=== PATIENT | male | born 1980 | race African-American/Black ===

== ENCOUNTER 2019-07-20 08:23 | Emergency (ER) | payer BC ==
[~2019-07-20] VITALS: Ht 182.9 cm; Wt 120.0 kg
[~2019-07-20 08:23] MED LIST: COZAAR50 MG PO; KEFLEX500 MG OR; LEVEMIR SC; METFORMIN1000 MG PO; NO HOME MEDS; PERCOCET 5/325M1 TAB OR
[2019-07-20] MEDS ORDERED: PREVACID15 M3 PO (09:12)
[2019-07-20 09:28] LABS: HEMOGLOBIN 16.3 g/dl (14.0-18.0); IMMATURE GRANULOCYTES 0.3 % (0.0-5.0); MEAN CELL VOLUME 87.2 fL CALC (80.0-100.0); MEAN CORPUSCULAR HGB 29.1 pG CALC (26.0-32.0); MEAN CORPUSCULAR HGB CONC 33.3 g/L CALC (32.0-36.0); NEUT# 4.29 thou/uL (1.82-7.42); RED BLOOD COUNT 5.61 mill/uL (4.70-6.10); RED CELL DISTRI WIDTH 15.2 % (11.5-15.5)
[2019-07-20 09:29] LABS: HEMATOCRIT 48.9 % (39.0-50.0)
[2019-07-20] MEDS ORDERED: ZINC50 MG PO (09:31)
[2019-07-20] MEDS ORDERED: [UNRECOGNIZED DRUG - OTHER] PO (09:44)
[2019-07-20] MEDS ORDERED: D3 DOTS2000 UNIT PO (09:45)
[2019-07-20] MEDS ORDERED: LISINOP/HCTZ1 TA2 PO (09:46)
[2019-07-20 09:50] LABS: URINE BILIRUBIN - DIPSTICK NEGATIVE (NEGATIVE); URINE BLOOD DIPSTICK NEGATIVE (NEGATIVE); URINE COLOR YELLOW; URINE GLUCOSE - DIPSTICK NEGATIVE (NEGATIVE); URINE KETONE NEGATIVE (NEGATIVE); URINE LEUK ESTERASE NEGATIVE (NEGATIVE); URINE NITRITE - DIPSTICK NEGATIVE (Negative); URINE PROTEIN - DIPSTICK NEGATIVE (NEG-TRACE); URINE SPECIFIC GRAVITY >=1.030
[2019-07-20 09:52] LABS: BARBITURATES NEGATIVE (NEGATIVE); COCAINE NEGATIVE (NEGATIVE); METHADONE NEGATIVE (NEGATIVE); OXCYCODONE NEGATIVE (NEGATIVE); TETRAHYDROCANNABIONOL NEGATIVE (NEGATIVE); TRICYLIC ANTIDEPRESSANTS NEGATIVE (NEGATIVE)
[2019-07-20 09:54] LABS: ALBUMIN 4.4 g/dL (3.2-5.0); ALKALINE PHOSPHATASE 81 u/l (38-126); AMYLASE 74 u/l (30-110); ANION GAP 15 (6-22 (CALC)); BUN 15 mg/dL (9-20); BUN/CREATININE RATIO 18 (12-20 (CALC)); CARBON DIOXIDE 25 mmol/l (22-30); CHLORIDE 99 mmol/l (95-108); CREATININE 0.9 mg/dL (0.7-1.3); GFR > 60 ML/MIN (>=60 (CALC)); GFR FOR AFR.AMER. > 60 ML/MIN (>=60 (CALC)); LIPASE 154 u/l (23-300); POTASSIUM 4.2 mmol/l (3.5-5.1); SODIUM 134 mmol/l (137-146); TOTAL PROTEIN 8.5 g/dL (6.3-8.2)
[2019-07-20 09:59] LABS: BILIRUBIN, TOTAL 1.1 mg/dL (0.0-1.4); SGOT/AST 73 u/l (17-59)
[2019-07-20 10:06] LABS: MYOGLOBIN 57 ng/mL (0 - 121)
[2019-07-20] MEDS ORDERED: ONDANSETRON4 MG PO (11:09)
[2019-07-20] MEDS ORDERED: PREVACID30 M3 PO (11:09)
[2019-07-20 11:28] VITALS: BP 128/73
== END 2019-07-20 11:49 | disposition home or self-care (01) | DRG 440 ==
LOC: ED 08:23
PROVIDERS: Emergency Medicine
DX: K85.90 Acute pancreatitis without necrosis or infection, unspecified (principal); I10 Essential (primary) hypertension; F17.210 Nicotine dependence, cigarettes, uncomplicated
CPT/HCPCS: Q9967; S0164

== ENCOUNTER 2019-07-23 15:15 | Inpatient (IN) | payer BC ==
[~2019-07-23] VITALS: Ht 182.9 cm; Wt 129.0 kg
[~2019-07-23 15:15] MED LIST changes: +D3 DOTS2000 UNIT PO; +LISINOP/HCTZ1 TA2 PO; +ONDANSETRON4 MG PO; +PREVACID15 M3 PO; +PREVACID30 M3 PO; +ZINC50 MG PO; +[UNRECOGNIZED DRUG - OTHER] PO
--- NOTE | 2019-07-23 15:37 | NUR ---
TO ROOM WITH STEADY GAIT
[2019-07-23 16:06] LABS: HEMATOCRIT 48.5 % (39.0-50.0); HEMOGLOBIN 15.6 g/dl (14.0-18.0); IMMATURE GRANULOCYTES 0.3 % (0.0-5.0); MEAN CELL VOLUME 89.2 fL CALC (80.0-100.0); MEAN CORPUSCULAR HGB 28.7 pG CALC (26.0-32.0); MEAN CORPUSCULAR HGB CONC 32.2 g/L CALC (32.0-36.0); NEUT# 3.46 thou/uL (1.82-7.42); RED BLOOD COUNT 5.44 mill/uL (4.70-6.10); RED CELL DISTRI WIDTH 15.2 % (11.5-15.5)
--- NOTE | 2019-07-23 16:20 | NUR ---
PATIENT REPORTS LUQ ABD PAIN X1 WEEK, DENIES ANY VOMITING OR DIARRHEA. HAS FOLLOW UP APPOINTMENT WITH PCP AND LAB WORK DRAWN. SENT TO ED FOR ABNORMAL LABS.
[2019-07-23 16:29] LABS: ALBUMIN 4.4 g/dL (3.2-5.0); ALKALINE PHOSPHATASE 71 u/l (38-126); AMYLASE 129 u/l (30-110); ANION GAP 17 (6-22 (CALC)); BUN 17 mg/dL (9-20); BUN/CREATININE RATIO 15 (12-20 (CALC)); CARBON DIOXIDE 25 mmol/l (22-30); CHLORIDE 100 mmol/l (95-108); CREATININE 1.1 mg/dL (0.7-1.3); GFR > 60 ML/MIN (>=60 (CALC)); GFR FOR AFR.AMER. > 60 ML/MIN (>=60 (CALC)); LIPASE 1419 u/l (23-300); POTASSIUM 4.3 mmol/l (3.5-5.1); SGOT/AST 28 u/l (17-59); SODIUM 138 mmol/l (137-146); TOTAL PROTEIN 8.2 g/dL (6.3-8.2)
[2019-07-23 16:30] LABS: BILIRUBIN, TOTAL 0.4 mg/dL (0.0-1.4)
[2019-07-23 16:43] LABS: URINE BILIRUBIN - DIPSTICK NEGATIVE (NEGATIVE); URINE BLOOD DIPSTICK TRACE-INTACT (NEGATIVE); URINE COLOR YELLOW; URINE GLUCOSE - DIPSTICK NEGATIVE (NEGATIVE); URINE KETONE NEGATIVE (NEGATIVE); URINE LEUK ESTERASE NEGATIVE (NEGATIVE); URINE NITRITE - DIPSTICK NEGATIVE (Negative); URINE PH 5.5 (4.5-8.0); URINE PROTEIN - DIPSTICK NEGATIVE (NEG-TRACE)
--- NOTE | 2019-07-23 17:19 | NUR ---
AT BEDSIDE TO DISCUSS RESULTS AND PLAN OF CARE.
--- NOTE | 2019-07-23 18:00 | NUR ---
PATIENT AMBULATES TO AND FROM BATHROOM WITH STEADY GAIT.
--- NOTE | 2019-07-23 18:44 | NUR ---
PATIENT UPDATED ON WAIT TIME FOR TRANSPORT TO MED SURG. VERBAL UNDERSTANDING.
--- NOTE | 2019-07-23 19:05 | NUR ---
REPORT CALLED TO TORO PELAYO.
--- NOTE | 2019-07-23 19:09 | NUR ---
PATIENT TRANSPORTED TO [facility] VIA WHEELCHAIR. TORO PELAYO INFORMED OF PATIENT ARRIVAL TO ROOM. BELONGINGS SENT TO ROOM WITH PATIENT. CARE RELINQUISHED.
--- NOTE | 2019-07-23 19:10 | NUR ---
PT ARIVED TO THE FLOOR VIA WC ACCOMPANIED BY ED STAFF. PT AMBULATED FROM WC TO BED WITH STEADY GATE. RESPIRATIONS EVEN AND UNLABORED ON RA, LUNGS SSOUND CLEAR. PEDAL PULSE STRONG. SKIN IS INTACT. PT EDUCATED ON POC. PT ORIENTED TO ROOM AND CALL HENRY SYSTEM. SAFETY PRECAUTIONS IN PLACE. WILL CONTINUE TO MONITOR.
[2019-07-23 20:04] VITALS: BP 131/100
--- NOTE | 2019-07-24 00:38 | NUR ---
PT RESTING IN BED NO S/S OF DISTRESS, WILL CONTINUE TO MONITOR.
[2019-07-24 03:50] VITALS: BP 136/85
--- NOTE | 2019-07-24 04:46 | NUR ---
PT RESTING IN BED. RESPIRATIONS EVEN AND UNLABORED ON RA. NO S/S OF DISTRESS AT THIS TIME. SAFETY PRECAUTIONS IN PLACE. WILL CONTNINUE TO MONITOR.
[2019-07-24 08:00] VITALS: BP 132/82
--- NOTE | 2019-07-24 08:00 | NUR ---
PT SEEN AWAKE, ALERT, ORIENTED X 3, AMBULATORY IN ROOM. LUNGS CLEAR, RA. ABDOMEN SOFT, TENDER WITH PALPATION, BM YESTERDAY. LABS REVIEWED WITH PT, QUESTIONS ANSWERED. NO ACUTE DISTRESS NOTED, TOLERATING CLEAR LIQUID DIET WELL.
[2019-07-24 10:15] LABS: HEMATOCRIT 46.2 % (39.0-50.0); MEAN CELL VOLUME 88.5 fL CALC (80.0-100.0); MEAN CORPUSCULAR HGB 28.7 pG CALC (26.0-32.0); MEAN CORPUSCULAR HGB CONC 32.5 g/L CALC (32.0-36.0); RED BLOOD COUNT 5.22 mill/uL (4.70-6.10); RED CELL DISTRI WIDTH 14.7 % (11.5-15.5)
[2019-07-24 10:29] LABS: ANION GAP 13 (6-22 (CALC)); BUN 14 mg/dL (9-20); BUN/CREATININE RATIO 14 (12-20 (CALC)); CARBON DIOXIDE 27 mmol/l (22-30); CHLORIDE 100 mmol/l (95-108); GFR > 60 ML/MIN (>=60 (CALC)); GFR FOR AFR.AMER. > 60 ML/MIN (>=60 (CALC)); LIPASE 608 u/l (23-300); MAGNESIUM 2.2 mg/dL (1.6-2.3); POTASSIUM 4.4 mmol/l (3.5-5.1); SODIUM 135 mmol/l (137-146)
[2019-07-24 10:34] LABS: CHOLESTEROL HDL RATIO 5.4 (<4.4 (CALC))
[2019-07-24 14:50] VITALS: BP 137/101
--- NOTE | 2019-07-24 15:40 | NUR ---
PT SEEN BY DR BOWIE, NO COMPLAINTS OF PAIN OR OTHERWISE.
--- NOTE | 2019-07-24 16:00 | NUR ---
PT RECEIVED NICOTINE PATCH PER REQUEST. PT ALSO WAS GIVEN HYDRALAZINE FOR ELEVATED BLOOD PRESSURE. BEFORE, NO CHANGE IN STATUS.
[2019-07-24 17:04] VITALS: BP 133/88
[2019-07-24 19:15] VITALS: BP 147/90
--- NOTE | 2019-07-24 19:15 | NUR ---
PT RESTING IN BED. A&OX3. NO DISTRESS NOTED. DISCUSSED POC. ASSESSMENT COMPLETED AT THIS TIME. NO FURTHER NEEDS/COMPLAINTS AT THIS TIME. CALL LIGHT IN REACH CONTINUE TO MONITOR.
--- NOTE | 2019-07-25 00:04 | NUR ---
PT SLEEPING IN BED WITH GIRLFRIEND AT BEDSIDE. NO SIGNS OF DISTRESS. CONTINUE TO MONITOR.
--- NOTE | 2019-07-25 04:06 | NUR ---
PT SLEEPING IN BED WITH GIRLFRIEND AT BEDSIDE. NO DISTRESS NOTED. CONTINUE TO MONITOR.
[2019-07-25 04:20] VITALS: BP 132/82
[2019-07-25 09:00] VITALS: BP 130/85
--- NOTE | 2019-07-25 09:00 | NUR ---
RESITNG IN BED. WATCHING TV. VSS. RESP NON-LABORED. LUNGS CLEAR. ABD SOFT, NON-TENDER TO PALPATION. DENIES ABD PAIN, NAUSEA OR EMESIS. IV IN LAC, SITE BENIGN, NS INFUSING AT 150 ML/HR. DISCUSSED PLAN OF CARE. NO NEEDS IDENTIFIED AT THIS TIME. CALL HENRY IN REACH.
--- NOTE | 2019-07-25 11:45 | NUR ---
PATIENT DIET ADVANCED TO CARDIAC DIET, TOOK WELL. NO C/O ANY ABD PAIN OR DISCOMFORTS. IV INFUSING WITHOUT INCIDENT.
[2019-07-25 16:01] VITALS: BP 130/87
--- NOTE | 2019-07-25 16:40 | NUR ---
Discharge instructions given. Patient verbalizes understanding of same. Discharged in stable condition via Wheelchair to [facility] with staff. All belongings sent with pt.
== END 2019-07-25 15:28 | disposition home or self-care (01) | DRG 440 ==
LOC: ED 15:15 → ED-I 17:15 → ED 17:38 → MS2 17:39
PROVIDERS: Nurse Practitioner Family; ADMIT Internal Medicine; ATTEND Internal Medicine
DX: K85.90 Acute pancreatitis without necrosis or infection, unspecified (principal); I10 Essential (primary) hypertension; F17.200 Nicotine dependence, unspecified, uncomplicated
CPT/HCPCS: J1650

== ENCOUNTER 2020-04-17 07:54 | Emergency (ER) | payer SELFPAY ==
[~2020-04-17] VITALS: Ht 182.9 cm; Wt 100.0 kg
[2020-04-17 08:30] LABS: HEMATOCRIT 48.7 % (39.0-50.0); HEMOGLOBIN 15.3 g/dl (14.0-18.0); IMMATURE GRANULOCYTES 0.2 % (0.0-5.0); MEAN CELL VOLUME 87.3 fL CALC (80.0-100.0); MEAN CORPUSCULAR HGB 27.4 pG CALC (26.0-32.0); MEAN CORPUSCULAR HGB CONC 31.4 g/dL CAL (32.0-36.0); NEUT# 1.98 thou/uL (1.82-7.42); RED BLOOD COUNT 5.58 mill/uL (4.70-6.10); RED CELL DISTRI WIDTH 14.1 % (11.5-15.5)
[2020-04-17 09:02] LABS: ALBUMIN 4.5 g/dL (3.2-5.0); ALKALINE PHOSPHATASE 60 u/l (38-126); AMYLASE 93 u/l (30-110); ANION GAP 16 (6-22 (CALC)); BUN 17 mg/dL (9-20); BUN/CREATININE RATIO 12 (12-20 (CALC)); CARBON DIOXIDE 25 mmol/l (22-30); CHLORIDE 102 mmol/l (95-108); CREATININE 1.4 mg/dL (0.7-1.3); GFR 56 ML/MIN (>=60 (CALC)); GFR FOR AFR.AMER. > 60 ML/MIN (>=60 (CALC)); LIPASE 219 u/l (23-300); SGOT/AST 34 u/l (17-59); SODIUM 139 mmol/l (137-146); TOTAL PROTEIN 8.2 g/dL (6.3-8.2)
[2020-04-17 09:06] LABS: BILIRUBIN, TOTAL 0.9 mg/dL (0.0-1.4)
[2020-04-17 11:49] VITALS: BP 136/89
== END 2020-04-17 11:55 | DRG 313 ==
LOC: ED 07:54
DX: R07.89 Other chest pain (principal); I10 Essential (primary) hypertension; E11.9 Type 2 diabetes mellitus without complications; F17.210 Nicotine dependence, cigarettes, uncomplicated

== ENCOUNTER 2020-05-28 08:10 | Observation (INO) | payer SELFPAY ==
[~2020-05-28] VITALS: Ht 177.8 cm; Wt 102.5 kg
--- NOTE | 2020-05-28 08:10 | NUR ---
PATIENT TO ROOM 11 VIA EMS STRETCHER.
--- NOTE | 2020-05-28 08:30 | NUR ---
ATTEMPTED FOR A URINE IN URINAL AND PT WAS UNABLE TO URINATE. MD ASKED FOR STRAIGHT CATH, WAS UNSUCCESSFUL. NO URINE RETRIEVED AND BLADDER IS NON PALPABLE. MD NOTIFIED.
[2020-05-28 08:37] LABS: HEMATOCRIT 45.4 % (39.0-50.0); HEMOGLOBIN 14.4 g/dl (14.0-18.0); IMMATURE GRANULOCYTES 0.2 % (0.0-5.0); MEAN CELL VOLUME 89.5 fL CALC (80.0-100.0); MEAN CORPUSCULAR HGB 28.4 pG CALC (26.0-32.0); MEAN CORPUSCULAR HGB CONC 31.7 g/dL CAL (32.0-36.0); NEUT# 2.97 thou/uL (1.82-7.42); RED BLOOD COUNT 5.07 mill/uL (4.70-6.10); RED CELL DISTRI WIDTH 14.8 % (11.5-15.5)
--- NOTE | 2020-05-28 08:40 | NUR ---
PT ESCORTED TO CT BY SECURITY. CHARGE NURSE NOTIFIED
[2020-05-28 08:51] LABS: ALKALINE PHOSPHATASE 56 u/l (38-126); ANION GAP 10 (6-22 (CALC)); BUN 12 mg/dL (9-20); BUN/CREATININE RATIO 11 (12-20 (CALC)); CARBON DIOXIDE 28 mmol/l (22-30); CHLORIDE 105 mmol/l (95-108); CPK 335 u/l (52-200); CREATININE 1.1 mg/dL (0.7-1.3); ETHYL ALCOHOL 0 mg/dl (0-30); GFR > 60 ML/MIN (>=60 (CALC)); GFR FOR AFR.AMER. > 60 ML/MIN (>=60 (CALC)); POTASSIUM 3.5 mmol/l (3.5-5.1); SGOT/AST 23 u/l (17-59); SODIUM 140 mmol/l (137-146); TOTAL PROTEIN 7.2 g/dL (6.3-8.2)
[2020-05-28 08:57] LABS: BILIRUBIN, TOTAL 0.4 mg/dL (0.0-1.4)
--- NOTE | 2020-05-28 09:01 | NUR ---
PT ARRIVED BY EMS CONFUSED WITH A GCS OF 11. PT AOX3 BUT WHEN ASKING QUESTIONS PT HAS GARBLED VERBAGE AND SAYS UNDEFINED THINGS. "I TOOK SOME BUGS AND THEY TOLD TAUGHT ME HOW TO STAY IN THE TREE ALL DAY AND ALL NIGHT." HE CANNOT RESPOND TO OUR QUESTIONS APPROPIATELY. FULL ROM IN ALL EXTREM. AFIBRILE. PINPOINT PUPILS 1 CM EACH EYE.
--- NOTE | 2020-05-28 09:24 | NUR ---
PT RESTING WITH EYES CLOSED
--- NOTE | 2020-05-28 10:40 | NUR ---
PT ASKED FOR WARM BLANKET, PROVIDED. CONTINUES WITH GCS OF 11. UNCHANGED. VITALS WNL.
--- NOTE | 2020-05-28 11:30 | NUR ---
PT RESTING WITH EYES CLOSED. GCS 11. UNCHANGED. AOX4.
--- NOTE | 2020-05-28 12:30 | NUR ---
ASKED PT IF HE CAN URINATE, PT UNABLE TO RESPOND APPROPRIATELY. MD NOTIFIED. FLUIDS COMPLETED AND WILL BE ORDERED AGAIN
--- NOTE | 2020-05-28 13:40 | NUR ---
ATTEMPTED TO RETRIEVE URINE BY STRAIGHT CATH, UNSUCCESSFULL. PT CONSENTED BUT NEEDED SEVERAL NURSES TO HOLD PT DOWN. STARTED ABDULAZIZ. DARK CLOUDY URINE COLLECTED
--- NOTE | 2020-05-28 13:58 | NUR ---
FLUIDS FLOWING INTO PATENT IV, PT RESTING WITH EYES CLOSED
[2020-05-28 14:23] LABS: URINE BILIRUBIN - DIPSTICK NEGATIVE (NEGATIVE); URINE BLOOD DIPSTICK SMALL (NEGATIVE); URINE COLOR YELLOW; URINE GLUCOSE - DIPSTICK NEGATIVE (NEGATIVE); URINE KETONE NEGATIVE (NEGATIVE); URINE LEUK ESTERASE NEGATIVE (NEGATIVE); URINE NITRITE - DIPSTICK NEGATIVE (Negative); URINE PH 5.5 (4.5-8.0); URINE PROTEIN - DIPSTICK NEGATIVE (NEG-TRACE); URINE SPECIFIC GRAVITY >=1.030; URINE UROBILINOGEN - DIPSTICK 0.2 E.U./dL (0.2)
[2020-05-28 14:25] LABS: URINE MUCUS FEW hpf (NONE-FEW); URINE RBC 0-2 RBC/hpf (0-5)
--- NOTE | 2020-05-28 14:28 | NUR ---
PT RESTING WITH EYES CLOSED
--- NOTE | 2020-05-28 15:30 | NUR ---
PT CONTINUES RESTING WITH EYES CLOSED. GCS 11. UNCHANGED. URINE OUTPUT 150 CC. WILL CONTINUE TO MONITOR.
--- NOTE | 2020-05-28 16:13 | NUR ---
GAVE REPORT TO GAVIOTA
--- NOTE | 2020-05-28 16:40 | NUR ---
PT TRANSPORTED TO ICU STABLE AND IN NO DISTRESS VIA STRETCHER WITH SECURITY AT BEDSIDE. CARE ASSUMED TO GAVIOTA Admission Note Report Given to: GAVIOTA Transported by: Wheelchair X Stretcher Transported with: X Nurse Transporter X Patent IV O2 X Clinical Pharmacologist Location: X ICU MS2
[2020-05-28 16:45] VITALS: BP 168/88
--- NOTE | 2020-05-28 17:15 | NUR ---
PT ARRIVES TO ICU 2 VIA STRETCHER FROM ER, ACCOMPANIED BY TOÑO ENGEL. PT IS SLEEPING, ROUSES BRIEFLY WITH VERBAL STIMULATION, GOES RIGHT BACK TO SLEEP. LUNGS CLEAR, RA. VSS. NO DISTRESS NOTED.
[2020-05-28 19:00] VITALS: BP 155/86
--- NOTE | 2020-05-28 19:15 | NUR ---
PT. SLEEPING AND AWAKENED FOR ASSESSMENT; COMPLETED AT THIS TIME. IV SITE PATENT TO LAC AND NS INFUSING @100MLS/HR. PT. IS ALERT TO PERSON AND PLACE; UNSURE OF [place]; RE-ORIENTED. PT. IS DROWSY. DENIES NEEDS/PAIN. PT. ABLE TO MOVE ALL EXTREMETIES. MENDEZ CATHETER PATENT AND DRAINING AT GRAVITY LEVEL.EXHAUST AND MUFFLER REPAIRER READING SR WITH PVC'S; B/P WNL; WILL CONTINUE TO MONITOR. CALL LIGHT IS IN REACH.
[2020-05-28 20:00] VITALS: BP 139/82
--- NOTE | 2020-05-28 20:41 | NUR ---
SCHEDULED MEDS GIVEN; PO FLUIDS GIVEN. DENIES FURTHER NEEDS.
[2020-05-28 22:00] VITALS: BP 135/82
--- NOTE | 2020-05-28 22:31 | NUR ---
RESTING IN BED WITH EYES CLOSED; NO DISTRESS NOTED; VSS. BED ALARM ON. CALL LIGHT IS IN REACH.
[2020-05-28 23:00] VITALS: BP 150/96
--- NOTE | 2020-05-29 00:30 | NUR ---
RESTING IN BED WITH EYES CLOSED; RESP. EVEN AND UNLABORED. CALL LIGHT IS IN REACH.
[2020-05-29 01:00] VITALS: BP 141/96
--- NOTE | 2020-05-29 02:00 | NUR ---
RESTING IN BED WITH EYES CLOSED; RESP. EVEN AND UNLABORED. CALL LIGHT IS IN REACH. BED ALARM ON.
[2020-05-29 04:00] VITALS: BP 147/97
--- NOTE | 2020-05-29 04:25 | NUR ---
RESTING IN BED WITH EYES CLOSED; AWAKENED FOR VS; VSS; MENDEZ CATHETER BAG EMPTIED. PT. ASSISTED INTO GOWN. CALL LIGHT IS IN REACH. WILL CONTINUE TO MONITOR. PT. CONTINUES TO BE DROWSY.
[2020-05-29 06:00] VITALS: BP 141/79
--- NOTE | 2020-05-29 06:08 | NUR ---
RESTING IN BED WITH NO DISTRESS NOTED. CALL LIGHT IS IN REACH. WILL CONTINUE TO MONITOR. FRESH WATER PROVIDED.
[2020-05-29 08:00] VITALS: BP 167/95
[2020-05-29] MEDS ORDERED: LISINOPRIL20 M1 PO (09:15)
--- NOTE | 2020-05-29 10:30 | NUR ---
PATIENT ALERT AND ORIENTED X4, LUNGS CLEAR. PATIENT DISCHARGED, INSTRUCTED PATIENT TO REFRAIN FROM USING DRUGS. IV RAC D/C AND CATHETER REMOVED. PATIENT STATED THAT HE VOIDED BUT DID NARCOTICS AGENT DID NO OBSERVE. PATIENT VERB UNDERSTANDING OF DISCHARGE INSTRUCTIONS.
--- NOTE | 2020-05-29 10:33 | NUR ---
Discharge instructions given. Patient verbalizes understanding of same. Discharged in stable condition via Ambulatory to Home with Self. All belongings sent with pt.
[2020-05-29 10:35] VITALS: BP 153/91
== END 2020-05-29 10:33 | disposition home or self-care (01) | DRG 918 ==
LOC: ED 08:10 → ED-I 14:30 → ED 14:45 → ICU 14:46
PROVIDERS: Student in an Organized Health Care Education/Training Program; ADMIT Internal Medicine; ATTEND Internal Medicine
PROC: 0T9B70Z Drainage of Bladder with Drainage Device, Via Natural or Artificial Opening (ICD-10-PCS; principal; 2020-05-28)
DX: T43.621A Poisoning by amphetamines, accidental (unintentional), initial encounter (principal); T40.5X1A Poisoning by cocaine, accidental (unintentional), initial encounter; T43.641A Poisoning by ecstasy, accidental (unintentional), initial encounter; F15.10 Other stimulant abuse, uncomplicated; F14.10 Cocaine abuse, uncomplicated; F16.10 Hallucinogen abuse, uncomplicated; I10 Essential (primary) hypertension; F17.200 Nicotine dependence, unspecified, uncomplicated; T46.4X6A Underdosing of angiotensin-converting-enzyme inhibitors, initial encounter; Z91.128 Patient's intentional underdosing of medication regimen for other reason; Z20.828 Contact with and (suspected) exposure to other viral communicable diseases
CPT/HCPCS: J1650

== ENCOUNTER 2021-03-25 07:38 | Emergency (ER) | payer OTHER ==
[~2021-03-25 07:38] MED LIST changes: +LISINOPRIL20 M1 PO
[2021-03-25 09:22] LABS: HEMATOCRIT 47.6 % (39.0-50.0); HEMOGLOBIN 15.9 g/dl (14.0-18.0); MEAN CELL VOLUME 86.7 fL CALC (80.0-100.0); MEAN CORPUSCULAR HGB CONC 33.4 g/dL CAL (32.0-36.0); NEUT# 1.88 thou/uL (1.82-7.42); RED BLOOD COUNT 5.49 mill/uL (4.70-6.10); RED CELL DISTRI WIDTH 12.9 % (11.5-15.5)
[2021-03-25 09:31] LABS: ALBUMIN 4.1 g/dL (3.2-5.0); BILIRUBIN, TOTAL 0.5 mg/dL (0.0-1.4); BUN 14 mg/dL (9-20); BUN/CREATININE RATIO 18 (12-20 (CALC)); CHLORIDE 95 mmol/l (95-108); CREATININE 0.8 mg/dL (0.7-1.3); GFR > 60 ML/MIN (>=60 (CALC)); GFR FOR AFR.AMER. > 60 ML/MIN (>=60 (CALC)); TOTAL PROTEIN 7.8 g/dL (6.3-8.2)
[2021-03-25 09:38] LABS: ALKALINE PHOSPHATASE 90 u/l (38-126); ANION GAP 18 (6-22 (CALC)); CARBON DIOXIDE 22 mmol/l (22-30); POTASSIUM 4.5 mmol/l (3.5-5.1); SGOT/AST 43 u/l (17-59); SODIUM 130 mmol/l (137-146)
[2021-03-25 10:32] VITALS: BP 127/80
== END 2021-03-25 10:32 | disposition home or self-care (01) | DRG 179 ==
LOC: ED 07:38
PROVIDERS: Emergency Medicine
DX: U07.1 COVID-19 (principal); I10 Essential (primary) hypertension; F17.200 Nicotine dependence, unspecified, uncomplicated